=== PATIENT | male | born 1975 | race Caucasian/White ===

== ENCOUNTER 2017-12-15 12:45 | Emergency (ER) | payer OTHER ==
[2017-12-15] MEDS ORDERED: Ketorolac Tromethamine 30 MG/ML VIAL ONE (13:14)
[2017-12-15 13:19] LABS: #Basophils 0.1 thou/uL (0.0-0.2); #Eosinphils 0.4 thou/uL (0.0-0.7); #Lymphocytes 1.8 thou/uL (1.20-3.40); #Monocytes 0.9 thou/uL (0.11-0.59); #Neutrophils 8.9 thou/uL (1.40-6.50); %Lymphocytes 14.6 % (21.0-51.0); %Monocytes 7.2 % (0.0-10.0); %Neutrophils 74.2 % (42.0-75.0); Mean Corpuscular HGB CONC 35.3 g/dL (32.0-36.0); Mean Corpuscular Hemoglobin 30.8 pg (27.0-31.0); Mean Corpuscular Volume 87.2 fL (78.0-98.0); Mean Platelet Volume 6.8 fL (7.4-10.4); Platelet Count 252 thou/uL (130-400); RBC Distribution Width 10.6 % (11.5-14.5); Red Blood Cell (RBC) Count 4.88 mill/uL (4.70-6.10)
[2017-12-15 13:35] LABS: ALT (SGPT) 32 U/L (8-55); AST (SGOT) 22 U/L (5-34); Albumin 3.8 g/dL (3.5-5.0); Alkaline Phosphatase 82 U/L (40-150); Anion Gap 13 mmol/L (10-20); BUN (Urea Nitrogen) 14 mg/dL (8.9-20.6); Bilirubin, Total 0.8 mg/dL (0.2-1.2); Calc. Creatinine Clearance 0 mL/min (70-130); Calcium 9.1 mg/dL (7.8-10.44); Carbon Dioxide 21 mmol/L (22-29); Chloride 100 mmol/L (98-107); Estimated GFR-MDRD 45; Globulin 2.8 g/dL (2.4-3.5); Glucose 140 mg/dL (70-105); Lipase 19 U/L (8-78); Potassium 4.1 mmol/L (3.5-5.1); Protein, Total 6.6 g/dL (6.0-8.3); Sodium 130 mmol/L (136-145)
[2017-12-15 14:12] LABS: Bilirubin Negative (Negative); Blood, Urine Negative (Negative); Clarity Clear (Clear); Glucose, Urine (Dipstick) Negative (Negative); Leukocyte Negative (Negative); Nitrite Negative (Negative); Protein, Urine (Dipstick) Negative (Neg-Trace); Specific Gravity, Urine 1.004 (1.002-1.036); Urobilinogen 0.2 mg/dL (0.2-1.0); pH, Urine 5.5 (5.0-9.0)
--- NOTE | 2017-12-15 14:54 | CT ---
NONCONTRAST CT ABDOMEN AND PELVIS: Date: 12/15/17 HISTORY: Right flank pain and right lower quadrant abdominal pain, with onset of symptoms 1 day ago. Nausea an d emesis. COMPARISON: none available. FINDINGS: There is mild right hydronephrosis and hydroureter with perinephric and periureteral inflammatory zain nges seen. There is an approximately 5.0 mm calculus seen in the distal right ureter at the level of the right UVJ. There are two approximately 3.0 mm nonobstructing calculi seen within the right kidney with a few additional punctate nonobstructing renal calculi on the right. No left renal or ureteral calculus is present. A portion of the liver demonstrates diminished attenuation, likely related to geographic fatty infilt ration of the liver. There is bibasilar atelectasis. Lack of intravenous contrast limits sensitivity for evaluation of the parenchymal organs. However, th e spleen, pancreas, bilateral adrenal glands, and left kidney demonstrate a grossly normal nonenhance d CT appearance. Rm of the urinary bladder do appear mildly thickened, but this may be attributable to incomplete d istention. A retrocecal appendix is visualized, which is filled with gas and normal in caliber. A tiny, fat-containing umbilical hernia is present. IMPRESSION: 1. Partially obstructing distal right ureteral calculus near the level of the UVJ measuring 5.0 mm. There is mild right hydronephrosis and hydroureter with perinephric and periureteral inflammatory str anding seen. Associated pyelonephritis cannot be entirely excluded without IV contrast. 2. Geographic fatty infiltration of the liver. 3. No CT evidence of appendicitis. POS: [facility]
== END 2017-12-15 14:27 | disposition home or self-care (01) ==
LOC: SCSER 12:45
DX: N13.2 Hydronephrosis with renal and ureteral calculous obstruction (principal)
CPT/HCPCS: 74176; 80053; 81003; 83690; 85025; 96361; 96374; J1885